=== PATIENT | male | born 1975 | race Two or more races ===

== ENCOUNTER 2022-07-09 00:01 | Emergency (ER) | payer MEDICAID, OTHER ==
[~2022-07-09] VITALS: Ht 167.6 cm; Wt 280.0 kg
[2022-07-09 00:01] VITALS: BP 195/120
[2022-07-09] MEDS ORDERED: cloNIDine HCL 0.1 MG TAB PO ONE ×2 (00:15)
== END 2022-07-09 01:24 | disposition home or self-care (01) ==
LOC: ER 00:01
DX: S01.312A Laceration without foreign body of left ear, initial encounter (principal); I10 Essential (primary) hypertension; V43.52XA Car driver injured in collision with other type car in traffic accident, initial encounter; Y93.89 Activity, other specified; Y92.488 Other paved roadways as the place of occurrence of the external cause; Y99.8 Other external cause status